=== PATIENT | male | born 1965 | race Caucasian/White ===

== ENCOUNTER 2023-12-02 08:54 | Day surgery (SDC) | payer OTHER ==
[2023-11-28 16:06] VITALS: BMI 28.9
[2023-12-02 10:31] VITALS: RESP 18; TEMP 97.1
[2023-12-02 11:14] VITALS: BP 141/76; PULSE 58
== END 2023-12-02 11:24 | disposition home or self-care (01) ==
LOC: FASU-ENDO 08:54
PROVIDERS: ATTEND Internal Medicine Gastroenterology
PROC: 0DJD8ZZ Inspection of Lower Intestinal Tract, Via Natural or Artificial Opening Endoscopic (ICD-10-PCS; principal; 2023-12-02 09:54)
DX: Z12.11 Encounter for screening for malignant neoplasm of colon (principal); K64.1 Second degree hemorrhoids; K57.30 Diverticulosis of large intestine without perforation or abscess without bleeding; K64.8 Other hemorrhoids